=== PATIENT | female | born 1990 | race Caucasian/White ===

== ENCOUNTER 2016-06-14 00:14 | Emergency (ER) | payer MEDICAID ==
[~2016-06-14] VITALS: Ht 160 cm; Wt 126.0 kg
[~2016-06-14 00:14] MED LIST: PREN1TAB62 PO
[2016-06-14 00:20] VITALS: Ht 160 cm; Wt 126.0 kg
[2016-06-14] MEDS ORDERED: LIDOCAINE 1% (MDV) 20 ML INJ SC ONE (04:30)
[2016-06-14 05:34] LABS: URINE BLOOD (Dip) POC 3+ (NEGATIVE)
[2016-06-14] MEDS ORDERED: BACTDS PO (05:39)
[2016-06-14] MEDS ORDERED: CEPH-443 PO (05:39)
[2016-06-14] MEDS ORDERED: IBUP-1542 PO (05:40)
[2016-06-14] MEDS ORDERED: HYDR-906 PO (05:40)
--- NOTE | 2016-06-14 05:54 | ERD ---
ER Documentation Chief Complaint Date/Time DATE: 06/14/16 TIME: 05:48 Chief Complaint vaginal pain x 3 days HPI Patient is a 25-year-old female who presents to the emergency department with vaginal pain 3 days. Patient states she noticed a lump in her right labial fold. Patient states that the lump is growing in size. She states that her current pain level is a 10 out of 10. Patient states that it is difficult walking and sit due to the pain. She has not tried any pain medications. Patient denies any fever, chills, nausea, vomiting, abdominal pain. Patient denies any pain with urination, hematuria or frequency. Patient states that she is having some brown- red vaginal discharge. Patient denies any excessive vaginal bleeding. LMP= 05/18/16. ROS All systems reviewed and are negative except as per history of present illness. Medications Home Meds Active Scripts Hydrocodone/Acetaminophen (Lancaster 5-325 Tablet) 1 Each Tablet, 1 TAB PO Q6H Y for PAIN, #7 TAB Prov:NIGEL VILLALOBOS PA-C 06/14/16 Ibuprofen* (Ibuprofen*) 600 Mg Tablet, 600 MG PO Q6 for 20 Days, TAB Prov:NIGEL VILLALOBOS-C 06/14/16 Cephalexin* (Keflex*) 500 Mg Capsule, 500 MG PO QID for 7 Days, CAP Prov:NIGEL VILLALOBOS PA-C 06/14/16 Sulfamethoxazole-Trimethoprim* (Bactrim* DS) 800-160 Mg Tab, 1 TAB PO BID for 7 Days, TAB Prov:NIGEL VILLALOBOS PA-C 06/14/16 Reported Medications Vit-Iron Fumarate-FA ( Vitamin Tablet) 1 Each Tablet, 1 TAB PO DAILY, TAB 11/14/15 Allergies Allergies: Coded Allergies: No Known Allergy (Unverified , 02/04/16) PMhx/Soc Medical and Surgical Hx: pt denies Medical Hx, pt denies Surgical Hx History of Surgery: Yes (C section X2) Anesthesia Reaction: No Hx Neurological Disorder: No Hx Respiratory Disorders: No Hx Cardiac Disorders: No Hx Psychiatric Problems: No Hx Miscellaneous Medical Probl: No Hx Alcohol Use: No Hx Substance Use: No Hx Tobacco Use: No Smoking Status: Never smoker Physical Exam Vitals Vital Signs Date Time Temp Pulse Resp B/P Pulse Ox O2 Delivery O2 Flow Rate FiO2 2/4/17 06:16 98.6 70 18 145/78 100 Room Air 06/14/16 00:20 98.3 87 20 160/80 100 Physical Exam GENERAL: Obese female. Appears in no acute distress. HEAD: Normocephalic, atraumatic. EYES: Pupils are equally reactive bilaterally. EOMs grossly intact. No conjunctival erythema. ENT: Moist mucous membranes. No uvula deviation. No kissing tonsils. NECK: Supple. No lymphadenopathy or thyromegaly. No meningismus. LUNG: Clear to auscultation bilaterally. No rhonchi, wheezing, rales or coarse breath sounds. HEART: Regular rate and rhythm. No murmurs, rubs or gallops. ABDOMEN: No scars, ecchymosis or rashes noted. Soft, nontender, and nondistended. Positive bowel sounds in all four quadrants. No rebound tenderness , no guarding. (-) McBurneys point tenderness. No CVA tenderness. FEMALE GENITALIA: Exam was completed with a personnel supervisor present. 4 cm circular abscess formation noted in R inner labia. +Tenderness to palpation. Erythematous. EXTREMITIES: Equal pulses bilaterally. No peripheral clubbing, cyanosis or edema. No unilateral leg swelling. NEUROLOGIC: Alert and oriented. Moving all four extremities without any difficulty. Normal speech. Steady gait. SKIN: Normal color. Warm and dry. No rashes or lesions. Results 24 hrs Laboratory Tests Test 06/14/16 05:36 Bedside Urine Blood 3+ Bedside Urine Glucose (UA) Negative Bedside Urine Ketones (LAB) Negative Bedside Urine Leukocyte Esterase (L 1+ Bedside Urine Nitrite (LAB) Negative Bedside Urine Protein (LAB) 2+ Bedside Urine pH (LAB) 6.5 Current Medications Medications (Trade) Dose Ordered Sig/Russ Route PRN Reason Start Time Stop Time Status Last Admin Dose Admin Lidocaine (Xylocaine 1% (Mdv) 20 ml) 20 ml ONCE ONCE SC 06/14/16 04:30 06/14/16 04:31 DC Procedures/MDM INCISION AND DRAINAGE: The patient was verbally consented prior to procedure. Patient was explained the risks, benefits and alternatives to this procedure. Location: Right inner labial fold Abscess size: 4 cm circular abscess formation Anesthesia: local 1% lidocaine, 6 cc Preparation: The area was prepped in a sterile fashion using betadine x3 cleanses. A sterile field was prepared. Technique: A sterile 11 blade scalpel was used to make a 1 cm linear incision into the abscess. Procedure: A midline abscess incision was made using a sterile scalpel in a linear fashion. Purulent material was expressed with direct pressure. Blunt probing was used to break up loculations. Bleeding was minimal. Packing: none The patient tolerated the procedure well with no complications. The wound was dressed in sterile gauze. Post-procedural wound care was discussed with the patient. MEDICAL DECISION MAKING: Patient is a 25-year-old female who presents to the right inner labial Bartholin 's gland cyst. Vital signs were reviewed. Patient is afebrile. Patient was not hypoxic. An incision and drainage was performed. Purulent material was expressed with direct pressure. Patient tolerated procedure well with no complications. Minimal bleeding. UA showed no evidence of acute infection or hematuria. Low suspicion for UTI, pyelonephritis or nephrolithiasis. Urine test was negative. Low suspicion for deep space infection. PRESCRIPTION: Bactrim, Keflex, [place], ibuprofen DISCHARGE: At this time, patient is stable for discharge and outpatient management. Patient was advised to complete full course of antibiotics. Patient will need to return in 2 days for wound recheck. I have discussed with the patient the possibility of needing to see a specialist for further workup and imaging studies if symptoms persist. I have instructed the patient to promptly return to the ER for any new or worsening symptoms including increased pain, fever, nausea, vomiting, weakness or LOC. The patient and/or family expressed understanding of and agreement with this plan. All questions were answered. Home care instructions were provided. Departure Diagnosis: Primary Impression: Bartholin gland cyst Condition: Stable Patient Instructions: Bartholin's Cyst (I And D) Referrals: [facility] YOU HAVE RECEIVED A MEDICAL SCREENING EXAM AND THE RESULTS INDICATE THAT YOU DO NOT HAVE A CONDITION THAT REQUIRES URGENT TREATMENT IN THE EMERGENCY DEPARTMENT. FURTHER EVALUATION AND TREATMENT OF YOUR CONDITION CAN WAIT UNTIL YOU ARE SEEN IN YOUR DOCTORS OFFICE WITHIN THE NEXT 1-2 DAYS. IT IS YOUR RESPONSIBILITY TO MAKE AN APPOINTMENT FOR FOLOW-UP CARE. IF YOU HAVE A PRIMARY DOCTOR --you should call your primary doctor and schedule an appointment IF YOU DO NOT HAVE A PRIMARY DOCTOR YOU CAN CALL OUR PHYSICIAN REFERRAL HOTLINE AT IF YOU CAN NOT AFFORD TO SEE A PHYSICIAN YOU CAN CHOSE FROM THE FOLLOWING [facility] [address] [facility] [address] [facility] [address] [facility] [address] [facility] [address] [facility]. [facility]. [address] [facility]. [facility] YOU HAVE RECEIVED A MEDICAL SCREENING EXAM AND THE RESULTS INDICATE THAT YOU DO NOT HAVE A CONDITION THAT REQUIRES URGENT TREATMENT IN THE EMERGENCY DEPARTMENT. FURTHER EVALUATION AND TREATMENT OF YOUR CONDITION CAN WAIT UNTIL YOU ARE SEEN IN YOUR DOCTORS OFFICE WITHIN THE NEXT 1-2 DAYS. IT IS YOUR RESPONSIBILITY TO MAKE AN APPOINTMENT FOR FOLOW-UP CARE. IF YOU HAVE A PRIMARY DOCTOR --you should call your primary doctor and schedule and appointment IF YOU DO NOT HAVE A PRIMARY DOCTOR YOU CAN CALL OUR PHYSICIAN REFERRAL HOTLINE AT . IF YOU CAN NOT AFFORD TO SEE A PHYSICIAN YOU CAN CHOSE FROM THE FOLLOWING [facility] INSTITUTIONS: [facility] [address] [place] [address] [facility] [address] [place] [address] [facility] [address] [place] [address] ONCOLOGY [place] [address] [facility] [address] [place], [place] [phone] OFFICE FAX ELIOT LEIJA [address] [place], [place] [phone] [facility] [place] [address] [place], [place] [phone] ROSAMARIA BOONE [address] [facility], [address], [facility] [address] [address] [place] [address] [facility] [address] [address] [place], [place] [phone] [address] [facility] [place] [phone] - DR MAHER RAJINDER [address] [facility]. [address], [facility] [phone] WU, [place] [address] [facility]. [address], [facility] [phone] MARSH, [facility] [address] [place] [address] Additional Instructions: Return in 2 days for wound recheck. Return sooner to the ED for any worsening pain, fever, chills, pain, erythema, swelling, discharge. Take antibiotics as prescribed. Epsom salt baths recommended. Warm compresses advised. NIGEL VILLALOBOS PA-C Jun 14, 2016 05:54
[2016-06-14 06:16] VITALS: BP 145/78; PULSE 70; RESP 18; TEMP 98.6
== END 2016-06-14 06:18 | disposition home or self-care (01) ==
LOC: FTE 00:14
DX: N75.0 Cyst of Bartholin's gland (principal)
CPT/HCPCS: 81003